=== PATIENT | male | born 1990 | race Caucasian/White ===

== ENCOUNTER 2023-06-15 22:27 | Emergency (ER) | payer OTHER, SELFPAY ==
[2023-06-15 22:34] VITALS: BP 124/90
--- NOTE | 2023-06-15 23:37 | ED.MUSCINJ ---
HPI-Injury
General
Chief Complaint: Musculo-Skeletal Complaint
Source: patient
Exam Limitations: none
Time Seen by Provider: 06/15/23 23:37
Nursing documentation reviewed up to this point in time: agreed with
Travel History
Have you had any contact with someone who has COVID-19?: No
Do you have any symptoms of coronavirus? Fever > 100 degrees, chills, cough, shortness of breath, sore throat, loss of taste or smell, muscle aches, or headache?: No
History of Present Illness-Injury
Initial Injury comments:
32-year-old male injured his right ankle playing basketball few hours ago.
Past History
Past History
ED Past Medical History: None
ED Past Surgical History: Other ([place] teeth)
Social History
Tobacco: Non-smoker
Alcohol: Occasional
Personal: Single
Living: with family
Employment: Not employed
Musculoskeletal Injury Exam
Musculoskeletal Injury Exam
Right Ankle:
Pain with Movement?: Moderate
Tender to palpation?: Moderate
Soft tissue swelling?: Mild
External deformity and angulation?: None
Strain- Sprain- Tear (Connective tissue injury)?: Mild
Malalignment/deformity?: No
Range of motion: Limited
Distal skin color and temperature: normal-warm & good color
Capillary Refill: normal
Phy Exam
Physical Exam
Physical Exam:
PHYSICAL EXAMINATION:
General: no apparent distress, not acutely ill
Neuro: alert and oriented.
Psychiatric: well kept. interactive and cooperative
Musculoskeletal: Moves with ease
Skin: Warm, pink.
Injury Course
Orders/Labs/Results
Orders:
Orders
06/15/23 22:37
CR Ankle - Right Min 3 Views * Urgent
Comment:
Reason For Exam: rolled ankle playing basketball
06/16/23 00:08
Trent Wrap Right-Treatment ONCE
Air Splint Right-Treatment ONCE
MDM/Problems Addressed
Differential Diagnosis Includes:
Sprain/fracture
MDM/Problems Addressed:
32-year-old male injured his right ankle playing basketball few hours ago.
X-ray right ankle: Initially read by this examiner, no acute bony abnormality.
06/16/2023 0009 AM
Trent wrap and air splint applied, afterwards patient was ambulating fairly comfortably, declines when crutches ordered.
*Critical Care Note
Total Time (30-74mins, 75-104mins- exclusive of procedures): Not Applicable
ED Attending Note
-
Portions of this chart may have been created with voice recognition software.� Occasional wrong word or��sound alike� substitutions may have occurred due to the inherent limitations of voice recognition software.
Discharge Plan
Departure
Patient Disposition: Home (Routine Discharge)
Date of Disposition: 06/16/23
Time of Disposition: 00:09
Patient with high blood pressure during this ER visit?: No
Condition: Good
Discharge Problem:
Right ankle sprain
Instructions: Ankle Sprain (DC), Using Cold for Pain, Ankle air splint and elastic bandage
Prescriptions:
No Action
No Meds [No Current Medications]
Referrals:
Song Chicas MD [Active] - As needed
Activity Restrictions/Additional Instructions:
As we discussed, see the orthopedic doctor if your ankle is not a lot better in 1 week or not 100% better in 3-4 weeks.
Ibuprofen 600 mg, with food, every 6 hours as needed for pain.
Wear the Trent wrap and air splint to your comfortably walking without them for
Interventions
Interventions:
*Risk Screen - Suicide Last Done: 06/15/23 23:59
*General Assessment Last Done: 06/15/23 23:56
*Neglect/Abuse Screening Last Done: 06/15/23 23:59
*ED COVID-19 Vaccine History Last Done: 06/15/23 23:56
ED-Musculoskeletal Assessment Last Done: 06/15/23 23:55
== END 2023-06-16 00:26 | disposition home or self-care (01) ==
LOC: EMR 22:27
PROVIDERS: EMERGENCY PHYSICIAN Emergency Medicine; FAMILY PHYSICIAN Physician Assistant Medical
DX: S93.401A Sprain of unspecified ligament of right ankle, initial encounter (principal); X50.1XXA Overexertion from prolonged static or awkward postures, initial encounter; Y93.67 Activity, basketball
CPT/HCPCS: 99283; 73610